=== PATIENT | female | born 1965 | race Caucasian/White ===

== ENCOUNTER 2025-08-23 14:57 | Outpatient (AMB) | payer OTHER, SELFPAY ==
--- OUTSIDE RECORDS SUMMARY | 2025-04-19 06:00 | XMS_ITS ---
Author Organization [facility] Address [address] [place] [address] Care Team Providers Care Design Engineer Agricultural Equipment Name Role Phone Lizzy Falcon [facility] Primary Care Provider Melissa Mast Unavailable Encounters Encounter Location Date Provider Diagnosis [facility] [address] [place] [phone] 04/19/2025 Melissa Mast Plan Of Treatment No Information Progress Notes * MADDOX MarissajaneeramonitaDOB: 6 (60 yo F)Acc No.[id number]:04/19/2025 Case Management Patient: Rita RODRIGUEZ Provider: Inga Mast :1965 A ge:59 Y S ex:Female Date:04/19/2025 Address:[facility] Pcp:Group Lizzy Falcon Subjective: * Chief Complaints: * * Medical History: Objective: Assessment: Plan: * Treatment: * Images: Billing Information: * Visit Code: * Procedure Codes: Care Plan Details* * Electronic signature of Marcial Mast on 08/23/2025 at 07:16 PM EDT Sign off status: Pending * Provider: Inga Mast Date: 0 04/19/2025 Generated for Mariam chery/Vanna/Charu on: 08/23/2025 07:16 PM EDT
--- OUTSIDE RECORDS SUMMARY | 2025-08-11 17:00 | XMS_ITS ---
Author Organization [facility] Address [address] [place] [address] Care Team Providers Care Stenotype Machine Operator Name Role Phone [facility] Primary Care Provider Melissa Mast Unavailable Migration, Provider Unavailable Unavailable Allergies Allergen (clinical drug ingredient) Drug/Non Drug Allergy documented on EMR Reaction Allergy Type Onset Date Status pregabalin Lyrica Unknown Drug Allergy Active REASON FOR VISIT Multum To Medispan Conversion Encounter Medications Medication SIG (Take, Route, Frequency, Duration) Notes Start Date End Date Status Benadryl Allergy 25 MG 1-2tab(s) orally hs prn Active Flexeril 5MG 1 TAB BY MOUTH QHS *Please revie w and pick correct strength-formulatio n from Medispan options. If intended option is not shown, discontinue and re-order from Quick Search* Active cloNIDine HCl 0.1 MG 1 tab(s) orally 2 times a day Active Levothyroxine Sodium 150 MCG 1 tab(s) orally once a day Active Encounters Encounter Location Date Provider Diagnosis [address] [address] 08/11/2025 Provider Migration Plan Of Treatment No Information Progress Notes * Marissa MADDOXrolandoDOB: 6 (60 yo F)Acc No.[id number]:08/11/2025 Patient: Rita RODRIGUEZ Provider: :1965 A ge:60 Y S ex:Female Date:08/11/2025 [facility] [facility]: * Chief Complaints: * 1 . Multum To Medispan Conversion Encounter. * Medical History: * Medications: T aking Benadryl Allergy 25 MG Tablet 1-2tab(s) orally hs prn , Taking Flexeril 5MG TABLET 1 TAB BY MOUTH QHS , Notes to Pharmacist: *Please review and pick correct strength-formulation from Cellworksan options. If intended option is not shown, discontinue and re-order from Quick Search*, Taking Benadryl Allergy 25 MG Tablet 1-2tab(s) orally hs prn , Taking cloNIDine HCl 0.1 MG Tablet 1 tab(s) orally 2 times a day , Taking Flexeril 5MG TABLET 1 TAB BY MOUTH QHS , Notes to Pharmacist: *Please review and pick correct strength-formulation from Access Systemsspan options. If intended option is not shown, discontinue and re-order from Quick Search*, Taking Levothyroxine Sodium 150 MCG Tablet 1 tab(s) orally once a day * Allergies: L yrica. Objective: * Vitals: Assessment: Plan: * Treatment: * Images: Billing Information: * Visit Code: * Procedure Codes: * Electronic signature of Prov ider Migration on 08/23/2025 at 07:16 PM EDT Sign off status: Pending * Provider: Date: 08/11/2025 Generated for Mariam chery/Vanna/Munaitting on: 08/23/2025 07:16 PM EDT
--- NOTE | 2025-08-23 15:11 | MHC.OFFVIS ---
Intake Visit Reasons: sooner appt Allergies pregabalin Allergy (Severe, Verified 08/23/25 15:12) patient states I'm going to thoughts. cephalexin (From Keflex) Allergy (Unknown, Verified 08/23/25 15:32) Unknown Medication List - Last Reconciled 08/23/25 by Nunu Robin CNP amitriptyline 10 mg PO BEDTIME buprenorphine-naloxone 8-2 mg (Suboxone) film sublingual gabapentin 300 mg PO TID levothyroxine 137 mcg PO DAILY HPI Comments Details: 60-year-old RH woman with right elbow area injury in 2011 that was surgically fixed but the elbow joint did not align or healed well and she was left with deformed arm. She had another surgery in 2012 for reconstruction that did not fix it either. Now she was having numbness and pain of medial three fingers, not of thumb and index finger, and hand weakness. She was doing okay. Pain was less with warmer weather, and she was able to stop taking gabapentin and amitriptyline for periods of time during the summer. She was having worsening symptoms the past few weeks. Symptoms were worse with colder and rainy weather. She was having more pain, and noticed hand seemed to contract more than in the summer. Gabapentin and amitriptyline help with pain, and she needed refill of medications. Review of Systems Const Denies chills, Denies daytime sleepiness, Reports difficulty sleeping, Denies fatigue, Denies fever(s), Denies frequent falls, Denies headache(s), Denies increased appetite, Denies poor appetite, Denies snoring, Denies weakness, Denies weight gain and Denies weight loss Eyes Denies loss of vision ENT Denies vertigo, Denies dizziness and Denies headache(s) Card Denies chest pain at rest, Denies chest pain with activity, Denies syncope, Denies leg edema and Denies palpitations Resp Denies snoring GI Denies constipation, Denies heartburn, Denies diarrhea and Denies nausea Denies urinary frequency, Denies urinary incontinence and Denies urinary urgency Musc Denies abnormal gait, Denies numbness and Denies tingling Skin/Breast Denies dry skin and Denies rash Neuro Denies abnormal gait, Denies vertigo, Denies dizziness, Denies syncope, Denies frequent falls, Denies headache(s), Denies lack of coordination, Denies loss of vision, Denies memory loss, Denies numbness, Denies restless legs, Denies seizure-like activity, Denies tingling, Denies paresthesias, Denies tremor(s) and Denies weakness Psych Denies anxiety, Denies depression, Denies auditory hallucinations, Denies memory loss, Denies visual hallucinations and Denies suicidal ideation Endo Denies fatigue and Denies palpitations Physical Exam Const Other: General Appearance:? normal, in no acute distress. Skin:? no rashes, no significant birthmarks. Heart:? S1, S2 normal, no murmurs. Lungs:? clear anteriorly and posteriorly. Extremities:? no edema. Psych:? alert, oriented, cognitive function intact, cooperative with exam. Neuro Other: Mental Status:?Normal attention, orientation, memory and affect.? Cranial Nerves:?Pupils are equal, round and reactive to light. External occular muscles are intact. Visual hendrickson are full. Face is symmetrical. Facial sensations are normal. Tongue is midline. Palate elevates symmetrically. Shoulder shrugging is normal. Hearing to bedside conversation is normal. Motor Examination:?Moderate right intrinsic hand muscle atrophy. Fingers are moderately clawed. Moderate weakness of finger flexion. DTRs absent. Sensory Exam:?....? Coordination:?No ataxia,?no titubation.? Gait Exam: Within normal limits. Extrapyramidal System:?No tremor, rigidity with normal facial expressions.? Pronator Drift:?Not present.? Involuntary Movements:?No tremors seen.? Speech:?Normal.? Results Reviewed Results Reviewed: NCV/EMG RTUE 11/15/23: Mild motor axonal peripheral neuropathy. Assessment & Plan Assessment & Plan (1) Neuropathic pain: Code(s): M79.2 - Neuralgia and neuritis, unspecified Category: Medical Plan: Continue gabapentin 300mg 1 capsule three times a day. Continue amitriptyline 10mg 1 tablet at bedtime. (2) Ulnar neuropathy: Code(s): G56.20 - Lesion of ulnar nerve, unspecified upper limb Category: Medical Qualifiers: Laterality: right Qualified Code(s): G56.21 - Lesion of ulnar nerve, right upper limb (3) Polyneuropathy: Code(s): G62.9 - Polyneuropathy, unspecified Category: Medical Plan . Medications: New gabapentin 300 mg PO TID 90 caps 5RF 30 days amitriptyline 10 mg PO BEDTIME 30 tabs 5RF 30 days Coding Level of Care Code Est Pt Level 4 (63055) Diagnoses Neuropathic pain M79.2 Ulnar neuropathy of right upper extremity G56.21 Laterality: right Polyneuropathy G62.9
--- OUTSIDE RECORDS SUMMARY | 2025-08-23 19:16 | XMS_ITS | Patient Health Record ---
Author Organization [facility] Address [address] [place] [address] Care Team Providers Care Test Grader Name Role Phone [facility] Primary Care Provider Melissa Mast Unavailable Migration, Provider Unavailable Unavailable Allergies Allergen (clinical drug ingredient) Drug/Non Drug Allergy documented on EMR Reaction Allergy Type Onset Date Status pregabalin Lyrica Unknown Drug Allergy Active Reason For Referral No Information Medications Medication SIG (Take, Route, Frequency, Duration) Notes Start Date End Date Status Benadryl Allergy 25 MG 1-2tab(s) orally hs prn Active Flexeril 5MG 1 TAB BY MOUTH QHS *Please revie w and pick correct strength-formulatio n from Ebixspan options. If intended option is not shown, discontinue and re-order from Quick Search* Active cloNIDine HCl 0.1 MG 1 tab(s) orally 2 times a day Active Levothyroxine Sodium 150 MCG 1 tab(s) orally once a day Active Social History Tobacco Use: Social History Observation Description Date Details (start date - stop date) Current Smoker NA - NA Tobacco Use Assessment MU Question Answer Notes What is your current smoking status? current smo ker How often do you smoke? every day How many cigarettes a day do you smoke? 5 or les s Patient counseled on the nga gers of tobacco use and advised to quit: 10/06/2016 Problems Problem Type SNOMED Code ICD Code Onset Dates Problem Status W/U Status Risk Notes Problem Hypothyroidism (23405800) Hypothyroidism, unspecified (E03.9) Active confirmed Problem Tobacco user (248943185) Nicotine dependence, cigarettes, uncomplicated (F17.210) Active confirmed Problem Dysthymia (56148564) Dysthymic disorder (F34.1) Active confirmed Problem Insomnia (645532519) Insomnia, unspecified (G47.00) Active confirmed Problem Pain in right arm (548606041) Pain in right arm (M79.601) Active confirmed Encounters Encounter Location Date Provider Diagnosis [facility] [address] [place], [place] [id number] 12/11/2024 Melissa Mast [facility] [address] [place] [address] 08/11/2025 Provider Migration Plan Of Treatment No Information Insurance Providers Payer Name Payer Address Payer Phone Subscriber Number Group Number Insured Name Patient Relationship to Insured Coverage Start Date Coverage End Date [facility] [address] [place] [address] [id number] Rita Maddox Self - patient is the insured Medical (General) History Medical History History ICD Code hypothyroid x many years R arm pain/neuropathy depression/insomnia Surgical History Surgery Date(Month/Year) L kidney cyst removed 2006 R elbow surgically repaired
--- OUTSIDE RECORDS SUMMARY | 2025-08-23 19:17 | XMS_ITS | Patient Health Record ---
Author Organization [facility] Address [address] [place] [address] Care Team Providers Care Plating Inspector Name Role Phone OLVIN CHOUDHURY NP Primary Care Provider HENRRY Knutson Unavailable [phone] Allergies No Known Allergies Reason For Referral No Information Medications Medication SIG (Take, Route, Frequency, Duration) Notes Start Date End Date Status Levoxyl 137 MCG 1 tablet in the morn ing on an empty stomach Orally Once a day Active CombiPatch 0.05-0.25 MG/DAY 1 patch to skin Transdermal Two times a Week; Duration: 30 day(s) 10/03/2020 Active miSOPROStol 200 MCG as directed Orally 8 -12 hrs prior to appointment; Duration: 1 days 10/31/2020 Active Social History Tobacco Use: Social History Observation Description Date Details (start date - stop date) Current Smoker NA - NA Tobacco Use/Smoking Question Answer Notes Are you a current smoker How many cigarettes a day do you smoke? 6-10 Problems Problem Type SNOMED Code ICD Code Onset Dates Problem Status W/U Status Risk Notes Problem Postmenopausal bleeding (01932124) Postmenopausal bleeding (N95.0) Active confirmed Problem Abnormal uterine bleeding (12340566682518) Abnormal uterine and vaginal bleeding, unspecified (N93.9) Active confirmed Plan Of Treatment Pending Test Test Name Order Date Sonohysterogram 10/31/2020 Insurance Providers Payer Name Payer Address Payer Phone Subscriber Number Group Number Insured Name Patient Relationship to Insured Coverage Start Date Coverage End Date [facility] PhoneAndPhone [facility] [address] [address] [place] [address] [id number] EDITH MACK Self - patient is the insured Medical (General) History Medical History History ICD Code Hypothyroidism, unspecified E03.9 Gastric ulcer, unspecified a s acute or chronic, without hemorrhage or perforation K25.9 Calculus of kidney N20.0 Surgical History Surgery Date(Month/Year) Left Arm Kidney Laparoscopy 1990 Hernia 2002 BTL 2001 Hospitalization History Reason Date(Month/Year)
--- OUTSIDE RECORDS SUMMARY | 2025-08-23 19:17 | XMS_ITS | Data Portability ---
Author Organization [facility] Address [address] [place] [address] Assessment Encounter Date Assessment Date Assessment LastModified by Organization Details LastModified Time 03/02/2024 03/02/2024 History: Patient is a 58-year-old female presents to me for initial evaluation of right-sided hip pain. She had hip pain for over one year. Takes Tylenol and ibuprofen for discomfort. Pain level VIII/10. Reports limitations in activities including difficulty putting on socks and shoes. Reports a limp. PMH/PSH/MEDS/ALL/FMH /SOC HX/ROS are reviewed in detail per my medical intake sheet. Of note: New diagnosis of hepatitis C, hypothyroidism General Examination: Vital signs are as noted below Mental Status: Alert and lucid. Normal insight, affect and grooming. BEHAVIORAL PSYCHOLOGIST: Gross motor coordination is intact. No spasticity or clonus noted. Extremities: Calves are soft nontender, skin intact Orthopedic Examination: Patient has a negative straight leg rise test bilaterally. Right Hip: Limited and painful range of motion with pain referred to the groin and buttock. Left Hip: Full range of motion without pain. Antalgic gait pattern favoring the right side. Full strength and sensation distally. X-rays: Radiographs reviewed from her previous visit including an AP pelvis and frog lateral of the affected side. These radiographs demonstrate end stage osteoarthritis of the right hip. There is [id number] articulation, subchondral sclerosis, and osteophyte formation. Assessment: End-stage osteoarthritis of the right hip which has failed greater than 3 months of nonoperative treatment including medication and activity modification. The patient is in too much discomfort to participate in any meaningful physical therapy. PLAN: The patient was thoroughly counseled today regarding their hip condition, its natural history and the options, both operative and non-operative. The nature of hip replacement surgery, the potential risks, benefits, and complications, the magnitude of the surgery, the intensity of postoperative recovery as well as its elective nature were explained at length today. Although it is impossible to list all of the possible complications of any operation or procedure, I explained that some of the major complications that may arise include the following: Blood loss requiring transfusion, infection (early or late), blood clots, dislocation, pain (persistent or new), scars numbness or tenderness, unequal leg lengths, weakness, stiffness, loss of motion, clicking of implant, calcification, fracture of bone, instability of leg, nerve damage (paralysis or numbness), blood vessel damage, implant loosening, implant breakage, wearing of the implant, need for future surgery, allergic reaction, metal toxicity, medical complications including confusion, heart attack, stroke, or ). Issues regarding life long dislocation, infection, and activity precautions were reviewed. The longevity of the implants was discussed. The pros and cons of the different bearing surfaces were explained. The patient understands the potential need for revision surgery. The patient also understands the potential complexity of a revision situation as well. A copy of my hip replacement information packet was given. We discussed performing the surgery in either an inpatient or outpatient setting as well as the pros and cons of both. The patient has elected to proceed in a inpatient setting. The patient will require clearance from a medical doctor prior to surgery. I would also like to get her geophysics professor recommendations with her newly diagnosed hepatitis C. She may require treatment of this first The patient wishes to schedule an elective total hip replacement at this time. Next planned follow-up is at the history and physical. The patient knows I will be happy to meet with them again at any time in order to review any additional questions or concerns that they might have. saad Not available 03/02/2024 18:25:58 Plan of Treatment Reminders Order Date Submit Date Provider Last Modified By Organization Details Last Modified Time Details Appointments None recorded . Lab None recorded . Referral physical therapis t referral - PRE HAB RTHR SURGERY DATE TBD Strength ening Lower Extremit y Upper extremit y to improve strength for transfer s with arthriti c lower extremit y No ROM Conditio pascale- stationa ry bike, etc. If pt over age 55 or has any cardiopu lmonary history, call PCP first to obtain medical clearanc e. Gait training Cane Walker Assistiv e devices for ADL's- sock puller, long shoe horn, etc. [address] [facility] ([facility]), [address], [place], [address], 19:59:40 physical therapis t referral - S/P RTHR SURGERY DATE TBD Gait Training , Strength ening, Conditio pascale AMRIT Precauti ons Please bring this script and attached protocol with you to your physical therapy appointm ent 2023 024 [email or web address] (Angelito Banks), [address], [place], [address], 19:59:40 Procedures None recorded . Surgeries None recorded . Imaging None recorded . Medication Orders None recorded . Patient TargetsNo targets recorded. Patient InstructionsNo instructions recorded. Reason for Referral Physical Therapist Referral for Osteoarthritis of right hip joint PRE HAB RTHR SURGERY DATE TBDStrengthening Lower Extremity Upper extremity to improve strength for transfers with arthritic lower extremity No ROM Conditioning- stationary bike, etc. If pt over age 55 or has any cardiopulmonary history, call PCP first to obtain medical clearance.Gait training Cane WalkerAssistive devices for ADL's- sock puller, long shoe horn, etc. Referring Physician: Jama Raphael, Orthopedic Surgery, Encounter Date: 03/02/2024 Physical Therapist Referral for Osteoarthritis of right hip joint S/P RTHR SURGERY DATE TBD Gait Training, Strengthening, Conditioning AMRIT PrecautionsPlease bring this script and attached protocol with you to your physical therapy appointment Referring Physician: Jama Raphael, Orthopedic Surgery, Encounter Date: 03/02/2024 Problems Name Problem SNOMED Code Status Onset Date Resolution Date Notes Provider Name and Address Organization Details Recorded Time No complaints 786316076 Active Status : 'A'; Not Available [facility] 4 09:12:52 Osteoarthriti s of hip 256215449 Active 2023 MERRICK ibarra [place] - [facility] 08:19:29 Problem Notes None recorded. Medical Equipment None Reported. Allergies Allergen ID Allergen Name Allergen Category Reaction Reaction Severity Criticality Documentation Date Start Date Code Code System Note Provider Name and Address Organization Details Recorded Time 526689 Medrol medicatio n Not available Not available Not available 03/02/202466198 2 RxNorm VAL ibarra [place] [facility] 11:27:18 Medications Name Sig Start Date Stop Date Status Note LastModified by Organization Details LastModified Time levothyroxine 137 mcg tablet active Not Available Not Availab le Not Available clindamycin HCl 300 mg capsule 03/02 completed Not Available Not Available Not Available tramadol 50 mg tablet 03/02 completed Not Available Not Available Not Available gabapentin 300 mg capsule active Not Available Not Available N ot Available methylprednisolo ne 4 mg tablets in a dose pack 03/02 completed Not Available Not Available Not Available Vitamin D2 1,250 mcg (50,000 unit) capsule active Not Available Not Availabl e Not Available ondansetron 4 mg disintegrating tablet 03/02 completed Not Available Not Available Not Available naproxen 500 mg tablet 03/02 completed Not Available Not Available Not Available peg 3350-electrolyte s 236 gram-22.74 gram-6.74 gram-5.86 gram solution 03/02 completed Not Available Not Available Not Available Vitals Date Recorded Body height Body mass index (BMI) Body weight Provider Name and Address Organization Details Last Updated DateTime 03/02/2024 166.37 cm 22.8 kg/m2 92104.34 g VAL SUAZO [facility] 03/02/2024 11:24:51 Social History None recorded. Functional Status None recorded. Mental Status None recorded. Family History Nothing Reported. Medical History No medical history recorded. Gynecological HistoryNo gynecological history recorded. Obstetrics History GPAL:G 0 P 0 0 0 0 Past Encounters Encounter ID Performer Location Encounter Start Date Encounter Closed Date Diagnosis/Indication Diagnosis SNOMED-CT Code Diagnosis ICD10 Code Diagnosis IMO Codes Diagnosis Note [id number] MD [place] [address] [place] [address] 03/02/2024 11:13:28 04/06/2024 09:29:21 Osteoarthritis of right hip joint 2924947721 61943 M16.11 Health Concerns Section Related Observation LastModified by Organization Detai ls LastModified Time None Recorded Concern Status LastModified by Organization Details LastModified Time None Recorded Advance Directives Directive None Recorded Payers Insurance Date Sequence Insurance Name Policy Number Policy Mendiola Covered Member ID Mendiola Member ID Guarantor Name 04/06/2024 1 [facility] PLAN (MEDICAID HMO) DOROTHY Maddox [id number] Rita Maddox OBGyn Episode No OBEpisode recorded.
--- OUTSIDE RECORDS SUMMARY | 2025-08-23 19:17 | XMS_ITS ---
Author Name [facility] Organization Unknown Care Team Organization Name Specialty Phone Email Start Date End Da te [facility] Mai Antunez MD Primary Care 10/06/2022 07/17/2024
== END 2025-08-23 15:33 | disposition home or self-care (01) ==
LOC: HO.HSM 14:57
PROVIDERS: Visit Provider Registered Nurse
DX: G56.21 Lesion of ulnar nerve, right upper limb (principal); M79.2 Neuralgia and neuritis, unspecified; G62.9 Polyneuropathy, unspecified
CPT/HCPCS: 99214

== ENCOUNTER → 2025-08-23 14:57 | Outpatient (BNVA) | payer OTHER, SELFPAY | PROVIDERS: Visit Provider Registered Nurse | DX: G56.21 Lesion of ulnar nerve, right upper limb (principal); G62.9 Polyneuropathy, unspecified; Z79.899 Other long term (current) drug therapy | CPT/HCPCS: 99212 ==